=== PATIENT | male | born 1985 ===

== ENCOUNTER 2019-02-05 20:00 | Emergency (ER) | payer SELFPAY ==
[2019-02-05] MEDS ORDERED: NA CHLORIDE 0.9% 1,000 ML ONE (20:40)
[2019-02-05] MEDS ORDERED: ASPIRIN 81 MG CHEWABLE TABLET ONE (20:40)
[2019-02-05 20:49] LABS: Absolute Lymphocytes (CBC) 3.4 K/uL (0.7-4.9); Basophils % 0.8 % (0-1.3); Hematocrit 44.7 % (39.6-49.0); Lymphocytes % 47.7 % (15.3-44.8); MPV 7.7 fL (7.6-11.3); RBC Red Blood Cell Count 5.07 M/uL (4.33-5.43)
[2019-02-05 20:54] LABS: Protime INR 0.87
[2019-02-05 21:10] LABS: ALT/SGPT 52 U/L (12-78); AST/SGOT 38 U/L (15-37); Alkaline Phosphatase 48 U/L (45-117); BUN Blood Urea Nitrogen 5 mg/dL (7-18); Bicarbonate 27 mmol/L (21-32); Bilirubin Direct 0.1 mg/dL (0-0.2); Bilirubin Total 0.3 mg/dL (0.2-1.0); Glucose Level 101 mg/dL (74-106); Lipase 224 U/L (73-393); Magnesium 2.5 mg/dL (1.8-2.4); NT PRO-BNP 27 pg/mL (<125); Potassium 3.5 mmol/L (3.5-5.1); Protein, Total 8.1 g/dL (6.4-8.2); Sodium Level 141 mmol/L (136-145); Troponin (Emerg Dept Use Only) < 0.02 ng/mL (0.0-0.045)
[2019-02-05 21:47] LABS: Barbiturates NEGATIVE (NEGATIVE); Benzodiazepines NEGATIVE (NEGATIVE); Cocaine NEGATIVE (NEGATIVE); METHAMPHETAM NEGATIVE (NEGATIVE); Methadone NEGATIVE (NEGATIVE); Opiates NEGATIVE (NEGATIVE); Phencyclidine NEGATIVE (NEGATIVE); THC Cannibis NEGATIVE (NEGATIVE)
[2019-02-05 21:52] LABS: Urine Blood NEGATIVE (NEG); Urine Glucose NEGATIVE (NEG); Urine Protein NEGATIVE (NEG); Urine Specific Gravity <1.005 (1.005-1.030)
--- NOTE | 2019-02-05 22:27 | ER ---
Nurse's Notes [facility] Name: Flaco Saucedo Age: 34 yrs Sex: Male : 1985 Arrival Date: 02/05/2019 Time: 20:01 Bed 23 Private MD: Diagnosis: Alcohol use, unspecified with intoxication;Other chest pain Presentation: 02/05 20:08 Presenting complaint: Patient states: stabbing chest pain that started about 2 hours la1 ago after drinking a couple beers. Transition of care: patient was not received from another setting of care. Onset of symptoms was February 05, 2019. Risk Assessment: Do you want to hurt yourself or someone else? Patient reports no desire to harm self or others. Initial Sepsis Screen: Does the patient meet any 2 criteria? No. Patient's initial sepsis screen is negative. Does the patient have a suspected source of infection? No. Patient's initial sepsis screen is negative. Care prior to arrival: None. 20:08 Method Of Arrival: Ambulatory la1 20:08 Acuity: CRESCENCIO 3 la1 Historical: - Allergies: 20:09 No Known Allergies; la1 - PMHx: 20:09 None; la1 - Immunization history:: Adult Immunizations up to date. - Social history:: Smoking status: Patient/guardian denies using tobacco. - Ebola Screening: : No symptoms or risks identified at this time. Screenin:18 Abuse screen: Denies threats or abuse. Denies injuries from another. Nutritional ca1 screening: No deficits noted. Tuberculosis screening: No symptoms or risk factors identified. Fall Risk IV access (20 points). Assessment: 20:18 General: Appears in no apparent distress. comfortable, Behavior is calm, cooperative, ca1 appropriate for age. Pain: Complains of pain in chest Pain does not radiate. Pain currently is 7 out of 10 on a pain scale. Quality of pain is described as stabbing, Pain began 1 hour ago. Is intermittent. Neuro: Level of Consciousness is awake, alert, obeys commands, Oriented to person, place, time, situation. Cardiovascular: Heart tones S1 S2 present Capillary refill < 3 seconds Patient's skin is warm and dry. Respiratory: Airway is patent Respiratory effort is even, unlabored, Respiratory pattern is regular, symmetrical, Breath sounds are clear. GI: Abdomen is flat, non-distended, Bowel sounds present X 4 quads. Abd is soft and non tender X 4 quads. : No deficits noted. No signs and/or symptoms were reported regarding the genitourinary system. EENT: No deficits noted. No signs and/or symptoms were reported regarding the EENT system. Derm: Skin is intact, is healthy with good turgor, Skin is pink, warm \T\ dry. Musculoskeletal: Circulation, motion, and sensation intact. Capillary refill < 3 seconds, Range of motion: intact in all extremities. 21:50 Reassessment: Patient and/or family updated on plan of care and expected duration. Pain ea level reassessed. Patient is alert, oriented x 3, equal unlabored respirations, skin warm/dry/pink. 22:25 Reassessment: Patient and/or family updated on plan of care and expected duration. Pain ea level reassessed. Patient is alert, oriented x 3, equal unlabored respirations, skin warm/dry/pink. Patient states feeling better. Patient states symptoms have improved. 22:29 Reassessment: Patient and/or family updated on plan of care and expected duration. Pain ea level reassessed. Patient is alert, oriented x 3, equal unlabored respirations, skin warm/dry/pink. Discharge instruction given to patient, verbalized the understanding of instruction. Pt left ED ambulatory, verbalized the understanding of instruction. Patient states feeling better. Patient states symptoms have improved. Vital Signs: 20:09 BP 165 / 85; Pulse 110; Resp 16; Temp 97.8; Pulse Ox 98% on R/A; Weight 86.18 kg; la1 Height 5 ft. 7 in. (170.18 cm); 21:45 BP 137 / 79; Pulse 75; Resp 18; Pulse Ox 98% ; ea 22:25 BP 143 / 99; Pulse 90; Resp 18; Pulse Ox 98% on R/A; ea 20:09 Body Mass Index 29.76 (86.18 kg, 170.18 cm) la1 ED Course: 20:01 Patient arrived in ED. ds1 20:09 Triage completed. la1 20:09 Arm band placed on left wrist. EKG completed in triage. Results shown to MD. la1 20:10 Parish Montgomery PA is PHCP. cp 20:10 Jose Elizabeth MD is Attending Physician. cp 20:12 Acob, Quin, RN is Primary Nurse. ca1 20:18 Patient has correct armband on for positive identification. Placed in gown. Bed in low ca1 position. Call light in reach. Side rails up X 1. planning lead on. Pulse ox on. NIBP on. Warm blanket given. 20:18 No provider procedures requiring assistance completed. Inserted saline lock: 20 gauge ca1 in right antecubital area, using aseptic technique. Blood collected. Patient maintains SpO2 saturation greater than 95% on room air. 21:35 Urine collected: clean catch specimen, clear, pedro colored. jp3 21:43 XRAY Chest (1 view) In Process Unspecified. EDMS 22:29 IV discontinued, intact, bleeding controlled, No redness/swelling at site. Pressure jp3 dressing applied. 22:29 IV discontinued, intact, bleeding controlled, No redness/swelling at site. Pressure ca1 dressing applied. Administered Medications: 20:40 Drug: NS 0.9% 1000 ml Route: IV; Rate: 1 bolus; Site: right antecubital; ca1 22:24 Follow up: Response: No adverse reaction; IV Status: Completed infusion; IV Intake: ea 1000ml 20:40 Drug: Aspirin Chewable Tablet 324 mg Route: PO; ca1 22:24 Follow up: Response: No adverse reaction ea Intake: 22:24 IV: 1000ml; Total: 1000ml. ea Outcome: 22:26 Discharge ordered by . cp 22:30 Discharged to home ambulatory, with family. ea 22:30 Condition: stable 22:30 Discharge instructions given to patient, Instructed on discharge instructions, follow up and referral plans. Demonstrated understanding of instructions, follow-up care. 22:31 Patient left the ED. ea Signatures: Dispatcher [employer] EDMN Chelsea Sheridan ds1 Colton Villalpando, RN RN la1 Parish Montgomery PA PA cp Renetta Martinez RN RN Sebastien Saunders jp3 Quin Nguyen, ELVIN RN ca1
--- NOTE | 2019-02-05 22:27 | EDPHYS ---
Physician Documentation [facility] Name: Flaco Saucedo Age: 34 yrs Sex: Male : 1985 Arrival Date: 02/05/2019 Time: 20:01 Bed 23 Private MD: ED Physician Jose Elizabeth HPI: 02/05 20:40 This 34 yrs old Male presents to ER via Ambulatory with complaints of Chest Pain. cp 20:40 The patient or guardian reports chest pain that is located primarily in the anterior cp chest wall, left. 20:40 The pain does not radiate. Associated signs and symptoms: Pertinent negatives: cp abdominal pain, cough, diaphoresis, dizziness, lower extremity pain, lower extremity swelling, shortness of breath, syncope. The chest pain is described as stabbing. Duration: The patient or guardian reports a single episode, that is still ongoing, and unchanged. Historical: - Allergies: 20:09 No Known Allergies; la1 - PMHx: 20:09 None; la1 - Immunization history:: Adult Immunizations up to date. - Social history:: Smoking status: Patient/guardian denies using tobacco. - Ebola Screening: : No symptoms or risks identified at this time. ROS: 20:45 Constitutional: Negative for body aches, chills, fever, poor PO intake. cp 20:45 Eyes: Negative for injury, pain, redness, and discharge. cp 20:45 ENT: Negative for drainage from ear(s), ear pain, sore throat, difficulty swallowing, difficulty handling secretions. 20:45 Cardiovascular: Positive for chest pain, Negative for edema, palpitations. 20:45 Respiratory: Negative for cough, shortness of breath, wheezing. 20:45 Abdomen/GI: Negative for abdominal pain, nausea, vomiting, and diarrhea, constipation, black/tarry stool, rectal bleeding. 20:45 Back: Negative for pain at rest, pain with movement. 20:45 : Negative for urinary symptoms. 20:45 Skin: Negative for rash. 20:45 Neuro: Negative for altered mental status, dizziness, headache, numbness, syncope, weakness. 20:45 All other systems are negative. Exam: 20:30 ECG was reviewed by the Attending Physician. cp 20:50 Constitutional: The patient appears in no acute distress, alert, awake, cp non-diaphoretic, non-toxic, well developed, well nourished. 20:50 Head/Face: Normocephalic, atraumatic. cp 20:50 Eyes: Periorbital structures: appear normal, Conjunctiva: normal, no exudate, no injection, Sclera: no appreciated abnormality, Lids and lashes: appear normal, bilaterally. 20:50 ENT: External ear(s): are unremarkable, Nose: is normal, Mouth: Lips: moist, Oral mucosa: pink and intact, moist, Posterior pharynx: is normal, airway is patent, no erythema, no exudate. 20:50 Neck: ROM/movement: is normal, is supple, without pain, no range of motions limitations, no nuchal rigidity. 20:50 Chest/axilla: Inspection: normal, Palpation: is normal, no crepitus, no tenderness. 20:50 Cardiovascular: Rate: tachycardic, Rhythm: regular, Heart sounds: murmur, not appreciated, Edema: is not appreciated. 20:50 Respiratory: the patient does not display signs of respiratory distress, Respirations: normal, no use of accessory muscles, no retractions, no splinting, no tachypnea, labored breathing, is not present, Breath sounds: are clear throughout, no decreased breath sounds, no stridor, no wheezing. 20:50 Abdomen/GI: Inspection: abdomen appears normal, Palpation: abdomen is soft and non-tender, in all quadrants. 20:50 Back: pain, is absent, ROM is normal. 20:50 Skin: no rash present. 20:50 Neuro: Orientation: to person, place \T\ time. Mentation: slow to respond, Motor: moves all fours, strength is normal. Vital Signs: 20:09 BP 165 / 85; Pulse 110; Resp 16; Temp 97.8; Pulse Ox 98% on R/A; Weight 86.18 kg; la1 Height 5 ft. 7 in. (170.18 cm); 21:45 BP 137 / 79; Pulse 75; Resp 18; Pulse Ox 98% ; ea 22:25 BP 143 / 99; Pulse 90; Resp 18; Pulse Ox 98% on R/A; ea 20:09 Body Mass Index 29.76 (86.18 kg, 170.18 cm) la1 MDM: 20:30 Patient medically screened. cp 21:00 Differential diagnosis: abnormal EKG, acute myocardial infarction, acute pericarditis, cp chest wall pain, esophagitis, gastritis, pericarditis, pneumonia, pneumothorax. 22:25 Data reviewed: vital signs, nurses notes, lab test result(s), EKG, radiologic studies, cp plain films. 22:25 Test interpretation: by ED physician or midlevel provider: ECG, plain radiologic cp studies. Special discussion: Based on the patient's history, exam, and Dx evaluation, there is no indication for emergent intervention or inpatient Tx. It is understood by the patient/guardian that if the Sx's persist or worsen they need to return immediately for re-evaluation. 02/05 20:37 Order name: Basic Metabolic Panel; Complete Time: 21:41 cp / 22:23 Interpretation: Normal except: BUN 5; CA 8.4. cp / 20:37 Order name: CBC with Diff; Complete Time: 21:41 cp / 21:42 Interpretation: Normal except: PITER% 36.0; LYM% 47.7; EOSINOPHIL % 5.8. cp 02/05 20:37 Order name: LFT's; Complete Time: 21:41 cp 02/05 21:43 Interpretation: Normal except: AST 38; GLOB 4.1; A/G 1.0. cp / 20:37 Order name: Magnesium; Complete Time: 21:41 cp / 21:43 Interpretation: MG 2.5; Reviewed. cp 02/05 20:37 Order name: NT PRO-BNP; Complete Time: 21:41 cp 02/05 20:37 Order name: PT-INR; Complete Time: 21:41 cp 02/05 20:37 Order name: Troponin (emerg Dept Use Only); Complete Time: 21:41 cp 02/05 20:37 Order name: XRAY Chest (1 view) cp 02/05 20:37 Order name: Lipase; Complete Time: 21:41 cp 02/05 20:38 Order name: ETOH Level; Complete Time: 21:41 cp 21 21:43 Interpretation: Abnormal: ETOH 285. cp 02/05 20:38 Order name: UDS; Complete Time: 22:21 cp 02/05 21:32 Order name: Urine Dipstick--Ancillary (enter results); Complete Time: 22:21 ar5 02/05 20:14 Order name: EKG; Complete Time: 20:15 cp 02/05 20:14 Order name: EKG - Nurse/Tech; Complete Time: 20:21 cp 02/05 20:37 Order name: Cardiac monitoring; Complete Time: 20:45 cp 02/05 20:37 Order name: IV Saline Lock; Complete Time: 20:45 cp 02/05 20:37 Order name: Labs collected and sent; Complete Time: 20:45 cp 02/05 20:37 Order name: O2 Per Protocol; Complete Time: 20:45 cp 02/05 20:37 Order name: O2 Sat Monitoring; Complete Time: 20:45 cp 02/05 20:38 Order name: Urine Dipstick-Ancillary (obtain specimen); Complete Time: 22:23 cp EC:30 Rate is 92 beats/min. Rhythm is regular. WA interval is normal. QRS interval is normal. cp QT interval is normal. Interpreted by me. Reviewed by me. Administered Medications: 20:40 Drug: NS 0.9% 1000 ml Route: IV; Rate: 1 bolus; Site: right antecubital; ca1 22:24 Follow up: Response: No adverse reaction; IV Status: Completed infusion; IV Intake: ea 1000ml 20:40 Drug: Aspirin Chewable Tablet 324 mg Route: PO; ca1 22:24 Follow up: Response: No adverse reaction ea Disposition: 02/06 02:59 Co-signature as Attending Physician, Jose Elizabeth MD. reva Disposition: 02/05/19 22:26 Discharged to Home. Impression: Alcohol use, unspecified with intoxication, Other chest pain. - Condition is Stable. - Discharge Instructions: Alcohol Intoxication, Nonspecific Chest Pain, Aspirin and Your Heart. - Medication Reconciliation Form, Thank You Letter, Antibiotic Education, Prescription Opioid Use, Work release form form. - Follow up: Private Physician; When: 1 - 2 days; Reason: Recheck today's complaints. - Problem is new. - Symptoms have improved. Signatures: Dispatcher [employer] EDMS Jose Elizabeth MD MD pkl Colton Villalpando RN RN la1 Parish Montgomery PA PA cp Antunez, Elena, RN RN ea Quin Nguyen RN RN ca1 Corrections: (The following items were deleted from the chart) 02/05 22: 21:42 Normal except: BUN 5. cp cp 22:31 22:26 02/05/2019 22:26 Discharged to Home. Impression: Alcohol use, unspecified with ea intoxication; Other chest pain. Condition is Stable. Forms are Work release form, Medication Reconciliation Form, Thank You Letter, Antibiotic Education, Prescription Opioid Use. Follow up: Private Physician; When: 1 - 2 days; Reason: Recheck today's complaints. Problem is new. Symptoms have improved. cp
--- NOTE | 2019-02-06 09:51 | RAD REPORT ---
EXAM DESCRIPTION: RAD - Chest Single View - 02/05/2019 9:41 pm CLINICAL HISTORY: Stabbing chest pain COMPARISON: None. TECHNIQUE: AP portable chest image was obtained 2134 hours . FINDINGS: Lungs are clear. Heart and vasculature are normal. No measurable pleural effusion and no p neumothorax. No acute bony abnormality seen. No acute aortic findings suspected. IMPRESSION: No acute cardiopulmonary process.
--- NOTE | 2019-02-06 13:50 | EKG ---
Test Date: 2019-02-05 Test Time: 20:20:43 Ore Grader: LENA MEASUREMENT RESULTS: Intervals: Rate: 92 HI: 136 QRSD: 92 QT: 372 QTc: 460 [place]: P: 75 HI: 136 QRS: 60 T: 58 INTERPRETIVE STATEMENTS: Normal sinus rhythm Normal ECG No previous ECG available for comparison Electronically Signed On 02-06-19 13:47:35 CDT by Justin Max
== END 2019-02-05 22:31 | disposition home or self-care (01) ==
LOC: ER 20:00 → EDBD 20:00 → ER 22:31
DX: F10.929 Alcohol use, unspecified with intoxication, unspecified (principal)
CPT/HCPCS: 36415; 71045; 80048; 80076; 80307; 80320; 81003; 83690; 83735; 83880; 84484; 85025; 85610; 93005; 96360; 96361; 99285; J7030